=== PATIENT | male | born 1985 | race Caucasian/White ===

== ENCOUNTER 2017-12-06 10:39 | Day surgery (SDC) | payer OTHER, SELFPAY ==
[2017-11-24 15:08] VITALS: BMI 27.8
[2017-12-06] VITALS (8 sets, daily range): BP systolic 112–126; BP diastolic 65–81; PULSE 63–86; RESP 14–16; TEMP 36.1–36.9; O2SAT 96–100; BMI 27.8
[2017-12-06] MEDS: LACTATED RINGERS 1,000 ML 42 ML IV (11:45)
--- NOTE | 2017-12-06 11:57 | SUR.PREOP ---
PT BECAME LIGHTHEADED AFTER IV INSERTION, BP DROPPED, 80/44, 77/43, 95/61, 102-103/ 66-65, FLUIODS BOLUS, 200MLS GIVEN, HOB LOWERED AND COOL WASHCLOTH TO FOREHEAD SYMPTOMS RESOLVED WITH IN 10 MIN. PT NOW SITTING UPRIGHT, COLOR RETURNED TO NORMAL. VSS.
[2017-12-06] MEDS: fentaNYL 100 MCG/2 ML INJ 50 MCG IV (14:19)
[2017-12-06] MEDS: MIDAZOLAM 2 MG/2 ML VIAL IV (14:19)
--- NOTE | 2017-12-06 14:34 | SUR.PREOP ---
Block start time [1415] . Monitoring initiated and maintained throughout procedure. Oxygen and medications given per anesthesiologist instructions. Patient remained stable throughout procedure, no adverse reactions noted. Block end time [1424].
[2017-12-06] MEDS: CEFAZOLIN 2 GM/100 ML FROZ.PIGGY IV (14:40)
--- NOTE | 2017-12-06 15:24 | SUR.OPER ---
Lateral on padded OR bed with emrino bag positioner, head on pillow, gel axillary roll in place, bottom leg bent with gel pad under knee to foot, upper leg straight and supported with pillows. Operative arm secured in shoulder positioning suspension device. non-operative arm secured on padded arm board. Safety belt at hip, tape over blanket securing lower legs and upper body.
[2017-12-06] MEDS: SODIUM CHLORIDE IRRIG SOLUTION 3,000 ML, EPINEPHrine 1 MG IRR (15:52)
[2017-12-06] MEDS: BUPIVACAINE 0.5% W/ EPI (PF) 30 ML VIAL INJ (15:52)
--- NOTE | 2017-12-06 16:54 | PM.OP.1 ---
Operative Date/Time/Diagnoses - Date of procedure: 12/06/17 Time of procedure: 16:54 Pre-op diagnosis: Left shoulder anterior labral tear, possible partial thickness rotator cuff tear Post-op diagnosis: other (Left shoulder anterior labral tear, acromioclavicular instability and clicking) Procedure & Clinicians Procedure: 1. Arthroscopic anterior labral repair (Bankart procedure) 2. Arthroscopic distal clavicle excision Same procedure as scheduled: No Indications: The patient is a 32-year-old gentleman who has had progressively worsening left shoulder pain which has not responded to nonoperative measures. MRI is appeared to show a labral tear and possibly a partial-thickness rotator cuff tear. After discussion the risks benefits and alternatives patient has agreed to proceed with surgery. Risks discussed included but were not limited to: Failure to improve, stiffness, infection, nerve damage, deep venous thrombosis, pulmonary embolism, stroke, coma, permanent paralysis and . Surgeon: Lincoln Garcia Plastic Tool Maker: Flores Wright Anesthesia Type: General and Peripheral nerve block Operative Notes Findings: 1. Minimal fraying of the central portion of the glenoid 2. Intact humeral cartilage 3. Glenoid labrum frayed in the inferior portion of the anterior labrum with partial separation from the glenoid rim 4. Intact appearing glenohumeral ligaments 5. Normal subscapularis 6. Biceps tendon notable for a very douglas synovial sheath but otherwise no evidence of biceps pathology. There was a meniscoid labrum but no SLAP lesion. 7. Intact supraspinatus 8. Intact infraspinatus 9. Intact rotator cuff from the bursal surface 10. Type 2 acromion with no impingement lesion 11. Hypermobile acromioclavicular joint with clicking palpable on examination which was the reason for the distal clavicle excision. 12. Exam under anesthesia notable for no significant evidence of anterior instability on translational testing, full range of motion and clicking in the acromioclavicular joint with motion of the arm. Closure Type: primary Specimen(s): none sent Implants & Drains: Two Mitek Lupine BR suture anchors Estimated Blood Loss (mL): 10 Blood products transfused: none Tourniquet time (min): 0 Procedure in detail: Patient was seen in the preoperative area we identified his left shoulder as the operative site was marked with my initials. He underwent the induction of interscalene block and received preoperative antibiotics. He was then taken to the operating room placed on the operating room table in a supine position where he underwent general anesthetic. Shoulders were examined under anesthesia with the result given above. He was then repositioned in the right lateral decubitus position with an axillary roll and a beanbag with pressure points all padded. The left arm was prepared to the finger tips the base of neck with ChloraPrep in the usual fashion drape through sterile drapes. The arm was placed in 10 lb of balanced skin suspension. The subcutaneous landmarks were outlined on the skin with a marking pen. A posterior portal was created and the arthroscope inserted and diagnostic arthroscopy ensued with the result given above. An anterior superior portal was created for the 5 mm cannula and an anterior inferior portal was created for the 8.5 mm cannula. The area of separation of the labrum which was from 7 till 9 o'clock on the labrum was developed using a liberator elevator. The anterior aspect of the glenoid was roughened with the shaver to allow for healing. Two anchors were placed at the 7 and 8:30 positions and the tissue advanced both superiorly and mediolaterally and reattached to the glenoid using the standard suture shuttle technique with the suture passer. The arthroscope was then withdrawn and placed in the subacromial bursa. A lateral portal was created for instrumentation. The distal clavicle was exposed using the electric cautery. Accessory anterior portal was created for distal clavicle excision as the previous portals were not in line with the axis of the acromioclavicular joint. The distal 8-10 mm of clavicle was excised using a 6 mm oval bur. At this point all arthroscopic equipment was removed. The wounds were closed with 4 0 Biosyn and Steri-Strips. Dressings of sterile 4x4s sterile ABD and adhesive dressings were applied. The patient's arm was placed in a sling. He was transported to the recovery room in good condition having tolerated the procedure well. Complications: none Condition: stable Disposition: PACU Plan for aftercare: The patient will be maintained on a standard arthroscopic Bankart procedure protocol. He will be allowed to remove his dressing in 3 days and shower normally.
[2017-12-06] MEDS: HYDROCODONE/ACET 5/325 TABLET 1 TAB PO (17:10)
== END 2017-12-06 17:37 | disposition home or self-care (01) ==
PROVIDERS: Visit Provider Orthopaedic Surgery
PROC: 0RQK4ZZ Repair Left Shoulder Joint, Percutaneous Endoscopic Approach (ICD-10-PCS; CPT 29807; principal; 2017-12-06 13:15)
DX: S43.432A Superior glenoid labrum lesion of left shoulder, initial encounter (principal); M25.312 Other instability, left shoulder; Z72.0 Tobacco use
CPT/HCPCS: 29806; 29824; 64450; J0171; J0690; J1100; J2250; J2405; J2704; J3010